=== PATIENT | female | born 1975 | race Caucasian/White ===

== ENCOUNTER 2018-05-26 19:20 | Emergency (ER) | payer OTHER ==
[2018-05-26] MEDS ORDERED: LIDOCAINE HCL 1%/EPI. (1:100,000) MDV 20ML VIAL IJ ONE (19:31)
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
[2018-05-26 19:54] VITALS: BP 108/50
== END 2018-05-26 19:52 | disposition home or self-care (01) ==
LOC: ED 19:20
DX: S01.01XA Laceration without foreign body of scalp, initial encounter (principal); W20.8XXA Other cause of strike by thrown, projected or falling object, initial encounter; Y93.89 Activity, other specified; Y92.810 Car as the place of occurrence of the external cause
CPT/HCPCS: 12002; 99282